=== PATIENT | female | born 1990 ===

== ENCOUNTER 2021-10-17 11:20 | Inpatient (IN) ==
[2021-10-17] MEDS ORDERED: OXYTOCIN 30 UNITS/500 ML BAG IV PRN ×3 (11:59→19:51)
[2021-10-17] MEDS ORDERED: PENICILLIN G POTASSIUM 6 MU in DEXTROSE 5% 250 ML IV STA (12:02)
--- NOTE | 2021-10-17 12:07 | History & Physical Report ---
Date of Service October 17, 2021 Assessment & Plan (1) : History of Present Illness Chief Complaint: labor at term Primary Care Provider: NO PCP 31 F P0000 at 38.1 weeks here in early labor. GBS is positive. Covid is pending. course has been uncomplicated. 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 Beliefs That Will Affect Care: None marital status: Current Living Situation: Spouse Current Living Situation Comment: mother visiting from [place] Feels Safe at Home: Yes Safety Concerns: Feels Safe At This Time Assistive Devices: None OB History primip [employer] SAL[employer] History neg Review of Systems All systems reviewed & are unremarkable except as noted in HPI & below Physical Exam Constitutional: WD/WN, vitals as above Eyes: PERRL, conjunctivae normal, anicteric sclerae Respiratory: normal respiratory effort, lungs clear to auscultation Cardiovascular: RRR, no murmur, no edema Gastrointestinal (Abdomen): normal bowel sounds, soft, nontender, no hepatosplenomegaly Musculoskeletal: Extremities: extremities normal to inspection Skin: no rashes, warm and dry Neurologic: patellar DTR's 2+ bilat, sensation intact Psychiatric: A+Ox3, euthymic affect Genitourinary: no vaginal lesions, no adnexal mass normal external appearance OB Exam Abdomen: + fundal height and + estimated weight (6.6-7 lbs.) Manual OB Exam: + cervical dilation 3 cm, + cervical effacement 100% and + station -2 OB Exam Monitor Tracing: + external FHT monitor used, + external uterine monitor used, + category I and + normal FHT variability Results & Data ([facility]) Vital Signs (Past 12 Hours) Vital Signs Temp Pulse Resp BP 10/17/21 11:33 36.6 C 86 18 126/86 10/17/21 11:28 86 126/86 Code Status & VTE Plan VTE Prophylaxis Plan VTE Prophylaxis will be ordered: No Monitoring External Monitor Cat 1 with contractions every 3-4 minutes
[2021-10-17] MEDS: LACTATED RINGER'S 1,000 ML IV PRN ×2 (12:15→14:25)
[2021-10-17 12:41] LABS: Hematocrit (blood only) 40.5 % (34.1-44.9); Hemoglobin 14.1 g/dl (12.0-16.0); Mean Corpuscular Hemoglobin 31.9 pg (25.0-34.0); Mean Corpuscular Hgb Conc 34.8 g/dL (32.0-36.0); Mean Corpuscular Volume 91.6 fL (80.0-100.0); Mean Platelet Volume 11.6 fL (9.4-12.3); Platelet Count 212 K/uL (130-400); RDW Coefficient of Variation 12.8 % (11.5-14.5); RDW Standard Deviation 42.6 fL (36.4-46.3); Red Blood Count 4.42 M/uL (3.93-5.22); White Blood Count 14.24 K/ul (4.8-10.8)
[2021-10-17] MEDS ORDERED: SODIUM CHLORIDE 0.9% INJ 10 ML VIAL ONE (12:51)
[2021-10-17] MEDS ORDERED: BUPIVACAINE 0.25% 30 ML VIAL ONE (12:51)
[2021-10-17] MEDS ORDERED: LIDOCAINE 2%/EPINEPHRINE 1:200,000 20 ML SDV ONE (12:51)
[2021-10-17] MEDS ORDERED: fentaNYL citrate 100 MCG/2 ML VIAL ONE (12:51)
[2021-10-17] MEDS ORDERED: ePHEDrine sulfate 50 MG/ML AMP ONE (12:51)
[2021-10-17] MEDS ORDERED: fentaNYL 2MCG/ML ROPIVACAINE 1.25MG/ML 100 ML BAG EPI ONE (12:52)
[2021-10-17] MEDS ORDERED: NALBUPHINE HCL INJ 10 MG/ML AMP IV PRN (13:25)
[2021-10-17] MEDS ORDERED: ePHEDrine sulfate 50 MG/ML AMP IV PRN (13:25)
[2021-10-17] MEDS ORDERED: diphenhydrAMINE 50 MG/ML VIAL IV PRN (13:25)
[2021-10-17] MEDS ORDERED: fentaNYL 2MCG/ML ROPIVACAINE 1.25MG/ML 100 ML BAG EPI PRN (13:25)
[2021-10-17] MEDS ORDERED: NALOXONE HCL 0.4 MG/1 ML VIAL/CARP IV PRN (13:25)
[2021-10-17] MEDS ORDERED: ONDANSETRON INJ 2 MG/ML 2 ML VIAL IV PRN (13:25)
[2021-10-17] MEDS ORDERED: NALOXONE HCL 1 MG in SODIUM CHLORIDE 0.9% 1000ML 1,000 ML IV PRN (13:25)
--- NOTE | 2021-10-17 13:29 | Anesthesiology Consultation ---
Date of Service October 17, 2021 Assessment & Plan Chart Review Chart Review: Patient NOT seen in Pre Admission Testing and Acceptable Risk for Labor Epidural Consults Requested none ASA ASA2 Proposed Anesthesia Anesthesia Type: Labor Epidural and CSE Risk / Benefits Reviewed With: PT / POA / Parent / Guardian, Accepts Plan and Informed Consent Obtained History Height/Weight Height: 5 ft 5 in Weight: 75.75 kg Allergies Allergy/AdvReac Type Severity Reaction Status Date / Time No Known Drug Allergies Allergy Unknown Verified 10/17/21 12:02 Medications Home Medications Medication Instructions Recorded Confirmed Last Taken prenat.vits,aleshia,gqo-[id number] 1 tab PO DAILY 10/15/21 10/17/21 10/15/21 21:00 Active Medications Generic Name Dose Route Start Last Admin Trade Name Freq PRN Reason Stop Dose Admin Lactated Ringer's 1,000 mls @ 125 mls/hr 10/17/21 11:59 10/17/21 13:00 Lr IV 10/19/21 11:58 125 mls/hr .Q8H PRN Infusion L&D Protocol Protocol NPO Date Last Intake of Fluids: 10/17/21 Time Last Intake of Fluids: 09:00 Date Last Intake of Solids: 10/17/21 Time Last Intake of Solids: 07:00 Past Medical History Medical History No known health problems Exercise / Class Metabolic Activity II 4-5 Yardwork/Stairs/Walk up hill Past Surgical History Surgical History No history of previous surgery Past Anesthesia History No Hx of Anesthesia Complications and No Family Hx of Anesthesia Complications History of PONV No Hx of PONV and No Hx of Motion Sickness Social History Smoking Status: Never smoker Hx Alcohol Use: No Hx Substance Use: No substance use type: does not use Review of Systems no chest pain or sob Physical Exam Vital Signs Last Vital Signs Temp 36.6 C 10/17/21 11:33 Pulse 84 10/17/21 13:23 Resp 18 10/17/21 11:33 BP 126/86 10/17/21 11:33 Pulse Ox 97 10/17/21 13:23 ENMT Mouth: no TMJ abnormality Thyromental Distance: > or= 3.5 Finger Breadths Mallampati Class: II Neck normal visual inspection Respiratory normal respiratory effort Auscultation: lungs clear to auscultation bilaterally Cardiovascular Rate/Rhythm: regular rate and regular rhythm Musculoskeletal Spine: normal cervical ROM Neurologic moves all extremities Psychiatric Orientation: alert and oriented x 3 Testing Laboratory Results 10/17/21 12:11
--- NOTE | 2021-10-17 14:26 | Labor Progress Brief Note ---
Date of Service October 17, 2021 Assessment & Plan Admission and Anticipated Discharge Date Admission Date: October 17, 2021 Physical Exam Genitourinary: Manual OB Exam: + cervical dilation 4 cm, + cervical effacement 100%, + station -1 and + amniotic fluid clear OB Exam Monitor Tracing: + external FHT monitor used, + external uterine monitor used, + category I and + normal FHT variability Will start Oxytocin to augment ctx Results & Data ([facility]) Vital Signs (Past 12 Hours) Vital Signs Temp Pulse Resp BP Pulse Ox 10/17/21 11:33 36.6 C 86 18 126/86 10/17/21 14:18 81 96 10/17/21 14:13 86 96 10/17/21 14:10 77 98/53 L 10/17/21 14:08 82 96 10/17/21 14:03 82 96 10/17/21 13:58 84 97 10/17/21 13:54 84 105/58 L 10/17/21 13:53 90 98 10/17/21 13:51 86 107/58 L 10/17/21 13:48 87 98 10/17/21 13:47 88 111/65 10/17/21 13:43 97 10/17/21 13:43 90 10/17/21 13:43 123 H 119/94 10/17/21 13:38 100 H 96 10/17/21 13:33 102 H 97 10/17/21 13:28 86 96 10/17/21 13:23 84 97 10/17/21 13:18 80 99 10/17/21 13:13 86 97 10/17/21 13:08 80 97 10/17/21 13:03 83 98 10/17/21 12:58 88 98 10/17/21 11:28 86 126/86
[2021-10-17] MEDS ORDERED: PENICILLIN G POTASSIUM 3 MU in DEXTROSE 5% 100 ML IV PRN (14:59)
[2021-10-17] MEDS ORDERED: NURSING L&D Epidural Breakthrough Pain Update ONE (16:50)
--- NOTE | 2021-10-17 18:01 | Labor Progress Brief Note ---
Date of Service October 17, 2021 Assessment & Plan Admission and Anticipated Discharge Date Admission Date: October 17, 2021 Physical Exam Genitourinary: Manual OB Exam: + cervical dilation 10 cm, + cervical effacement 100%, + station + 1 and + amniotic fluid clear OB Exam Monitor Tracing: + external FHT monitor used, + external uterine monitor used, + category I and + normal FHT variability WILL START TO PUSH Results & Data ([facility]) Vital Signs (Past 12 Hours) Vital Signs Temp Pulse Resp BP Pulse Ox 10/17/21 11:33 36.6 C 86 18 126/86 10/17/21 17:58 100 H 98 10/17/21 17:53 87 96 10/17/21 17:48 79 97 10/17/21 17:43 97 H 97 10/17/21 17:40 81 113/73 10/17/21 17:38 87 98 10/17/21 17:35 16 10/17/21 17:35 37.2 C 16 10/17/21 17:33 86 97 10/17/21 17:28 82 97 10/17/21 17:25 81 126/67 10/17/21 17:23 85 98 10/17/21 17:18 83 97 10/17/21 17:13 103 H 97 10/17/21 17:11 83 116/72 10/17/21 17:08 86 98 10/17/21 17:03 89 96 10/17/21 16:58 83 97 10/17/21 16:56 93 H 113/69 10/17/21 16:53 84 96 10/17/21 16:48 78 96 10/17/21 16:43 90 96 10/17/21 16:42 83 111/71 10/17/21 16:38 78 97 10/17/21 16:33 80 97 10/17/21 16:28 81 96 10/17/21 16:27 76 108/62 10/17/21 16:23 77 96 10/17/21 16:18 79 96 10/17/21 16:13 76 96 10/17/21 16:10 73 107/63 10/17/21 16:08 75 96 10/17/21 16:03 75 95 10/17/21 15:58 79 95 10/17/21 15:53 80 96 10/17/21 15:48 82 96 10/17/21 15:45 84 94 10/17/21 15:43 86 97 10/17/21 15:40 37.2 C 99 H 16 91/53 L 10/17/21 15:38 94 10/17/21 15:38 83 10/17/21 15:38 92 H 94 10/17/21 15:33 96 H 95 10/17/21 15:32 91 H 94 10/17/21 15:28 95 H 96 10/17/21 15:23 88 96 10/17/21 15:18 86 95 10/17/21 15:13 86 94 10/17/21 15:12 86 98/55 L 10/17/21 15:08 94 H 96 10/17/21 15:03 89 95 10/17/21 14:58 96 H 94 10/17/21 14:56 86 107/65 94 10/17/21 14:53 92 H 95 10/17/21 14:48 88 96 10/17/21 14:43 89 95 10/17/21 14:41 95 H 97/63 L 10/17/21 14:38 89 96 10/17/21 14:30 16 10/17/21 14:30 37.1 C 16 10/17/21 14:33 87 96 10/17/21 14:28 89 97 10/17/21 14:25 85 95/51 L 10/17/21 14:23 80 96 10/17/21 14:18 81 96 10/17/21 14:13 86 96 10/17/21 14:10 77 98/53 L 10/17/21 14:08 82 96 10/17/21 14:03 82 96 10/17/21 13:58 84 97 10/17/21 13:54 84 105/58 L 10/17/21 13:53 90 98 10/17/21 13:51 86 107/58 L 10/17/21 13:48 87 98 10/17/21 13:47 88 111/65 10/17/21 13:43 97 10/17/21 13:43 90 10/17/21 13:43 123 H 119/94 10/17/21 13:38 100 H 96 10/17/21 13:33 102 H 97 10/17/21 13:28 86 96 10/17/21 13:23 84 97 10/17/21 13:18 80 99 10/17/21 13:13 86 97 10/17/21 13:08 80 97 10/17/21 13:03 83 98 10/17/21 12:58 88 98 10/17/21 11:28 86 126/86
--- NOTE | 2021-10-17 19:16 | Delivery Summary ---
Vaginal Delivery Summary Date of Service October 17, 2021 Vaginal Delivery Summary Delivery Note live male SUSU over intact perineum with delayed cord clamping and Apgars 8/9 weight pending. Cord blood obtained followed by spontaneous delivery of intact placenta. No tears. EBL 200 ml. Final sponge and instrument count are correct. Mom and baby stable.
[2021-10-17] MEDS ORDERED: HYDROCORTISONE ACETATE 25 MG SUPP PR PRN (19:51)
[2021-10-17] MEDS ORDERED: bisacodyL 10 MG SUPP PR PRN (19:51)
[2021-10-17] MEDS ORDERED: DIPHTHERIA/TETANUS/PERTUSSIS 0.5 ML SYR/VIAL IM ONE (19:51)
[2021-10-17] MEDS ORDERED: BENZOCAINE 20% AER SPR 82.5 GM CAN EXT PRN (19:51)
[2021-10-17] MEDS ORDERED: ACETAMINOPHEN 325 MG TAB PO PRN (19:51)
--- NOTE | 2021-10-17 21:09 | Anesthesia Procedure Note ---
Date of Service October 17, 2021 Anesthesia Post Epidural Note Vital Signs Vital Signs: Temp Pulse Resp BP Pulse Ox 37.0 C 102 H 20 98/61 L 95 10/17/21 18:10 10/17/21 20:54 10/17/21 20:40 10/17/21 20:54 10/17/21 19:03 Notes Mental Status: alert / awake / arousable and participated in evaluation Nausea / Vomiting: adequately controlled Pain: adequately controlled Airway Patency, RR, SpO2: stable & adequate BP & HR: stable & adequate Hydration State: stable & adequate Neuraxial Anesthesia: was administered and sensory block is resolving Anesthetic Complications: no major complications apparent and Pt Satisfied with anesthetic care Epidural: Removed without complications and With tip intact
[2021-10-17] MEDS: DOCUSATE SODIUM 100 MG CAP PO SCH (22:12)
[2021-10-18] MEDS: IBUPROFEN 600 MG TAB PO PRN ×2 (05:11→16:32)
[2021-10-18 06:37] LABS: Hematocrit (blood only) 33.1 % (34.1-44.9); Hemoglobin 11.4 g/dl (12.0-16.0); Mean Corpuscular Hemoglobin 32.2 pg (25.0-34.0); Mean Corpuscular Hgb Conc 34.4 g/dL (32.0-36.0); Mean Corpuscular Volume 93.5 fL (80.0-100.0); Mean Platelet Volume 11.2 fL (9.4-12.3); Platelet Count 154 K/uL (130-400); RDW Coefficient of Variation 12.6 % (11.5-14.5); RDW Standard Deviation 43.4 fL (36.4-46.3); Red Blood Count 3.54 M/uL (3.93-5.22); White Blood Count 17.56 K/ul (4.8-10.8)
--- NOTE | 2021-10-18 06:52 | Obstetrical Progress Note ---
Date of Service October 18, 2021 Subjective Ambulation: ambulating normally Voiding: no voiding problems Passing Gas:: Yes Diet Tolerance:: regular diet Feeding Type:: breast feeding Current Pain Level(1-10): 0 doing well Physical Exam Constitutional WD/WN, vitals as above Gastrointestinal (Abdomen) Inspection/Auscultation: abdomen normal to inspection abdomen soft and non-tender fundus firm Musculoskeletal Extremities: extremities normal to inspection no edema. neg Cong's Skin no rashes, warm and dry Neurologic patellar DTR's 2+ bilat, sensation intact Psychiatric A+Ox3, euthymic affect Results & Data ([facility]) Vital Signs (Past 12 Hours) Vital Signs Temp Pulse Pulse Resp BP BP Pulse Ox 10/18/21 03:52 37.2 C 90 16 105/68 95 10/17/21 23:02 37.2 C 108 H 16 112/73 96 10/17/21 22:13 37.4 C 105 H 16 98/61 L 10/17/21 21:10 20 10/17/21 20:40 20 10/17/21 19:55 16 10/17/21 19:40 18 10/17/21 20:10 18 10/17/21 19:25 18 10/17/21 19:10 20 10/17/21 21:25 125 H 101/68 10/17/21 21:09 100 H 102/71 10/17/21 20:54 102 H 98/61 L 10/17/21 20:39 88 104/63 10/17/21 20:24 97 H 96/63 L 10/17/21 20:10 89 97/58 L 10/17/21 19:55 101 H 96/63 L 10/17/21 19:45 98 H 103/59 L 10/17/21 19:25 90 117/72 10/17/21 19:10 97 H 117/77 10/17/21 19:03 103 H 95 10/17/21 18:58 106 H 98 10/17/21 18:53 103 H 98 O2 Del Method 10/18/21 03:52 Room Air 10/17/21 23:02 Room Air 10/17/21 22:13 10/17/21 21:10 10/17/21 20:40 10/17/21 19:55 10/17/21 19:40 10/17/21 20:10 10/17/21 19:25 10/17/21 19:10 10/17/21 21:25 10/17/21 21:09 10/17/21 20:54 10/17/21 20:39 10/17/21 20:24 10/17/21 20:10 10/17/21 19:55 10/17/21 19:45 10/17/21 19:25 10/17/21 19:10 10/17/21 19:03 10/17/21 18:58 10/17/21 18:53 Laboratory Results 10/17/21 10/17/21 10/18/21 12:11 12:23 06:00 WBC 14.24 H 17.56 H RBC 4.42 3.54 L Hgb 14.1 11.4 L Hct 40.5 33.1 L MCV 91.6 93.5 MCH 31.9 32.2 MCHC 34.8 34.4 RDW Std Deviation 42.6 43.4 RDW Coeff of Kacey 12.8 12.6 Plt Count 212 154 MPV 11.6 11.2 SARS-CoV-2, RNA, NAAT NEGATIVE
[2021-10-18] MEDS: PRENATAL VITAMIN 1 TAB PO SCH (08:58)
[2021-10-18] MEDS: FERROUS SULFATE 325 MG TAB PO SCH (08:58)
[2021-10-18] MEDS: DOCUSATE SODIUM 100 MG CAP PO SCH ×2 (08:58→20:44)
[2021-10-18] MEDS ORDERED: NON-FORMULARY MEDICATION (Prenat.Vits,Cal,Min-Iron-Folic Tablet) PO SCH (09:00)
[2021-10-18] MEDS ORDERED: bisacodyL 5 MG TABEC PO SCH (20:00)
[2021-10-19 06:37] LABS: Hematocrit (blood only) 32.2 % (34.1-44.9)
[2021-10-19] MEDS: IBUPROFEN 600 MG TAB PO PRN (07:42)
[2021-10-19] MEDS: FERROUS SULFATE 325 MG TAB PO SCH (07:42)
[2021-10-19] MEDS: DOCUSATE SODIUM 100 MG CAP PO SCH (07:42)
[2021-10-19] MEDS: PRENATAL VITAMIN 1 TAB PO SCH (07:42)
--- NOTE | 2021-10-19 10:08 | Obstetrical Progress Note ---
Date of Service October 19, 2021 Subjective Ambulation: ambulating normally Voiding: no voiding problems Passing Gas:: Yes Diet Tolerance:: regular diet Feeding Type:: breast feeding doing well Review of Systems All systems reviewed & are unremarkable except as noted in HPI & below Physical Exam Constitutional WD/WN, vitals as above Gastrointestinal (Abdomen) normal bowel sounds, soft, nontender, no hepatosplenomegaly abdomen soft and non-tender. fundus firm below U Skin no rashes, warm and dry Neurologic patellar DTR's 2+ bilat, sensation intact Results & Data ([facility]) Vital Signs (Past 12 Hours) Vital Signs Temp Pulse Resp BP BP Pulse Ox O2 Del Method 10/19/21 07:30 36.9 C 82 18 105/69 98 Room Air 10/19/21 00:30 37.0 C 90 18 111/67 98 Room Air Laboratory Results Laboratory Results - last 72 hr 10/17/21 10/17/21 10/18/21 12:11 12:23 06:00 WBC 14.24 H 17.56 H RBC 4.42 3.54 L Hgb 14.1 11.4 L Hct 40.5 33.1 L MCV 91.6 93.5 MCH 31.9 32.2 MCHC 34.8 34.4 RDW Std Deviation 42.6 43.4 RDW Coeff of Kacey 12.8 12.6 Plt Count 212 154 MPV 11.6 11.2 SARS-CoV-2, RNA, NAAT NEGATIVE 10/19/21 06:29 WBC RBC Hgb 11.0 L Hct 32.2 L MCV MCH MCHC RDW Std Deviation RDW Coeff of Kacey Plt Count MPV SARS-CoV-2, RNA, NAAT
== END 2021-10-19 13:29 | disposition home or self-care (01) | DRG 807 ==
LOC: OPB 11:20 → 4S1 11:21 → 4E1 22:02
DX: O99.824 Streptococcus B carrier state complicating childbirth; Z37.0 Single live birth; Z3A.38 38 weeks gestation of pregnancy